=== PATIENT | male | born 1940 | race Caucasian/White ===

== ENCOUNTER → 2017-05-03 | Outpatient (CLI) | payer MEDICARE, BC ==
--- NOTE | 2017-05-03 10:09 | RADRPT ---
PROCEDURE: Bilateral knee x-ray CLINICAL INDICATION: PAIN TECHNIQUE: AP and sunrise views of bilateral knees as well as a lateral view of bilateral knees we re obtained. COMPARISON: None FINDINGS: There is normal osseous mineralization. There is no acute fracture. Soft tissue structures are unremarkable. There is significant narrowing of the medial compartment of the right knee with subchondral sclerosi s and bone on bone contact noted. Mild chondrocalcinosis of the lateral compartment of the right kn ee is noted. There is mild narrowing of the right patellofemoral compartment. There is no significant right knee effusion. There is significant narrowing of the medial compartment of the left knee with subchondral sclerosis and bone on bone contact noted. Mild chondrocalcinosis of the lateral compartment of the left knee is noted. There is moderate narrowing of the left patellofemoral compartment. There is no significant left knee effusion. RPTAT: AA IMPRESSION: Moderate to severe degenerative changes of bilateral knees involving primarily the medial compartmen ts, as above. Physician [facility] Date Time Electronically viewed and signed by Arvind Nicole Physician on 05/03/2017 10:08 /
== END | disposition home or self-care (01) ==
LOC: HKI 12:46
PROVIDERS: ATTEND Orthopaedic Surgery
DX: M17.0 Bilateral primary osteoarthritis of knee (principal); M25.562 Pain in left knee; M25.561 Pain in right knee; I10 Essential (primary) hypertension; E78.00 Pure hypercholesterolemia, unspecified; Z85.828 Personal history of other malignant neoplasm of skin; Z87.891 Personal history of nicotine dependence; Z88.0 Allergy status to penicillin
CPT/HCPCS: 73564; G0463

== ENCOUNTER → 2017-06-09 | Outpatient (CLI) | payer MEDICARE, BC ==
[~2017-06-09] MED LIST: AMLO-147 PO; LOSA50TA6 PO
--- NOTE | 2017-06-09 14:05 | RADRPT ---
PROCEDURE: Limited x-ray of both lower extremities. CLINICAL INDICATION: Bilateral leg pain. TECHNIQUE: Single frontal view of both lower extremities was obtained from the hips to the calves. COMPARISON: None. FINDINGS: These are not well seen due to overlying soft tissues. There are degenerative changes of both knees with bilateral medial joint compartment narrowing, subarticular sclerosis, and deformity. There is bilateral varus deformity. IMPRESSION: 1. The hips are not well seen. 2. Severe degenerative changes of both knees with varus deformity. RPTAT: QQ .Reynold Brantley MD, MD Date Time Electronically viewed and signed by .Reynold Brantley MD, MD on 06/09/2017 14:04 .R/
== END | disposition home or self-care (01) ==
LOC: HKI 10:51
PROVIDERS: ATTEND Orthopaedic Surgery
DX: Z01.818 Encounter for other preprocedural examination (principal)
CPT/HCPCS: 77073

== ENCOUNTER 2017-06-15 09:58 | Inpatient (IN) | payer MEDICARE, BC ==
[~2017-06-15] VITALS: Ht 177.8 cm; Wt 105.0 kg
[2017-06-15] VITALS (23 sets, daily range): BP systolic 135–162; BP diastolic 60–101; PULSE 76–98; RESP 13–20; Ht 177.8 cm; Wt 105.0 kg
[~2017-06-15 09:58] MED LIST changes: +CEFAZOLIN 1 GM INJ ONE; +EPHEDrine SULFATE 50 MG/5 ML SYG ONE
[2017-06-15] MEDS ORDERED: ATOR10TA65 PO (10:47)
[2017-06-15] MEDS ORDERED: VIT1TABL32 PO (10:48)
[2017-06-15] MEDS ORDERED: MULT-860 PO (10:48)
[2017-06-15] MEDS ORDERED: CELECOXIB 400 MG PO X1 DOSE PO ONE (11:00)
[2017-06-15] MEDS ORDERED: BUPIVACAINE LIPOSOME/PF 266 MG/20 ML VIAL INFIL ONE (11:00)
[2017-06-15] MEDS ORDERED: PAIN COCKTAIL - VANCOMYCIN IRR ONE ×7 (11:00)
[2017-06-15] MEDS ORDERED: TRANEXAMIC ACID 1,000 MG in SOD CHLORIDE 0.9% 90 ML IV ONE (11:00)
[2017-06-15] MEDS ORDERED: oxyCODONE (CR) 10 MG TAB [oxyCONTIN] X1 DOSE PO ONE (11:00)
[2017-06-15] MEDS ORDERED: TRANEXAMIC ACID 1,000 MG in SOD CHLORIDE 0.9% 100 ML IVPB ONE (11:00)
[2017-06-15] MEDS ORDERED: PREGABALIN 300 MG PO X1 PO ONE (11:00)
[2017-06-15] MEDS ORDERED: VANCOMYCIN 1 GM/NS 250 ML X1 BEFORE INCISION IVPB ONE (11:00)
[2017-06-15] MEDS ORDERED: traMADOL 50 MG TAB X 1 DOSE PO ONE (11:00)
[2017-06-15] MEDS: LACTATED RINGER'S 1,000 ML IV SCH ×3 (11:44→21:00)
[2017-06-15] MEDS: traMADol 50 MG TAB PO SCH ×2 (12:00→19:57)
[2017-06-15] MEDS ORDERED: POLYMYXIN B 500000 UNIT INJ ONE (12:39)
[2017-06-15] MEDS ORDERED: SODIUM CL BACTERIOSTATIC 30 ML INJ ONE (12:40)
--- NOTE | 2017-06-15 12:40 | HPN ---
Date/Time of Note Date/Time of Note DATE: 06/15/17 TIME: 12:39 Interval H&P Admission Note Pt. seen H&P reviewed: No system changes No changes from H&P on 06/02/17 by ANA Paulino MD Jun 15, 2017 12:39
[2017-06-15] MEDS ORDERED: PROPOFOL 100 ML ONE (13:16)
[2017-06-15] MEDS ORDERED: FENTAnyl 50 MCG/ML VIAL ONE (13:16)
[2017-06-15] MEDS ORDERED: LIDOCAINE 2% (SDV) 5 ML INJ ONE (13:16)
[2017-06-15] MEDS ORDERED: MIDAZOLAM 1 MG/ML 2 ML INJ ONE (13:16)
[2017-06-15] MEDS: VANCOMYCIN 1 GM INJ ONE ×2 (14:12→14:14)
[2017-06-15] MEDS ORDERED: BACITRACIN 50000 UNITS INJ IRR ONE (14:12)
[2017-06-15] MEDS ORDERED: EXPAREL NOTE (BUPIVICAINE LIPOSOMAL) XX SCH (14:30)
[2017-06-15] MEDS ORDERED: MEPERIDINE 25 MG INJ IV PRN (15:00)
[2017-06-15] MEDS ORDERED: FENTAnyl 50 MCG/ML VIAL IV PRN (15:00)
[2017-06-15] MEDS ORDERED: HYDROmorphONE (0.2 MG/ML) 10ML SYG IV PRN (15:00)
[2017-06-15] MEDS ORDERED: PROCHLORPERAZINE 10 MG INJ IV PRN (15:00)
[2017-06-15] MEDS ORDERED: DIPHENHYDRAMINE 50 MG INJ IV PRN (15:00)
[2017-06-15] MEDS ORDERED: ONDANSETRON 4 MG INJ IV PRN ×2 (15:00→16:00)
[2017-06-15] MEDS ORDERED: ASPIRIN (EC) 325 MG TAB PO ONE (16:00)
[2017-06-15] MEDS ORDERED: DIPHENHYDRAMINE 25 MG CAP PO PRN (16:00)
[2017-06-15] MEDS ORDERED: NA PHOSPHATE/BIPHOS 133 ML ENEMA PR PRN (16:00)
[2017-06-15] MEDS ORDERED: NACL 0.9% 3 ML SYG IV SCH (16:00)
[2017-06-15] MEDS ORDERED: CEFAZOLIN 2 GM/50 ML (PMX) 50 ML IVPB SCH (16:00)
[2017-06-15] MEDS ORDERED: BISACODYL 10 MG SUPP PR PRN (16:00)
[2017-06-15] MEDS ORDERED: HYDROmorphONE 1 MG/ML SYG IV PRN (16:00)
[2017-06-15] MEDS ORDERED: MAGNESIUM HYDROXIDE 30ML CUP PO PRN (16:00)
--- NOTE | 2017-06-15 16:02 | OPR ---
Date/Time of Note Date/Time of Note DATE: 06/15/17 TIME: 15:56 Operative Report Procedure Description DATE: 06/15/2017 PREOPERATIVE DIAGNOSIS: Left knee osteoarthritis POSTOPERATIVE DIAGNOSIS: Left knee osteoarthritis OPERATION PERFORMED: Left total knee arthroplasty. SURGEON: Ana Culp MD POWDERED SUGAR PULVERIZER OPERATOR: Blue Giron PA-C COMPONENTS USED: DePuy attune size 7 femur, size 7 tibial baseplate, 5 mm polyethylene insert, 38 patella ANESTHESIA: Spinal plus general endotracheal intubation, plus femoral nerve catheter. ANESTHESIOLOGIST: Tamiko Navarro M.D. TOURNIQUET TIME: 74 minutes. ESTIMATED BLOOD LOSS: 50 cc INTRAVENOUS FLUIDS: 2500 cc crystalloid SPECIMENS: Bone and soft tissue. DRAINS: Hemovac x1. COMPLICATIONS: None. DISPOSITION: The patient tolerated the procedure well and was taken to the recovery room in stable condition. INDICATIONS: The patient is a 76-year-old gentleman who has had worsening pain in his left knee with radiographic evidence of severe osteoarthritis. He has failed nonsurgical means of treatment to address his pain including activity modifications, pain medications, intra-articular injections, and ambulatory assist devices. Despite these measures he has had worsening pain and I feel he would benefit from a total knee arthroplasty . The risks, benefits, and alternatives of the procedure were explained in detail to the patient. I explained the risks of the surgery to include but not be limited to, bleeding and possible need for blood transfusion; infection; pain; stiffness; neurovascular injury with possible numbness, weakness, and/or paralysis anywhere from the knee down to the toes; fracture; instability; dislocation; wear and/or loosening of the prosthesis and possible need for future revision; blood clots; pulmonary embolism; and anesthetic complications such as heart attack, stroke, GI bleed, pneumonia, and/or . Ample time was allowed for the patient to ask questions, all of which were addressed and answered. The patient understood the risks involved and wished to proceed. Informed consent was signed prior to the procedure. PROCEDURE: The patient's left knee was initialed with a marking pen in the preoperative area to identify the correct operative site. The patient was brought to the operating room and transferred from the [facility] to the operating table where a spinal anesthetic was administered. The patient was then anesthetized and intubated. A Mishra catheter was placed. A timeout was performed to confirm that the left leg was the correct operative site. The patient was given 1 g of vancomycin and 2 g of Ancef within one hour prior to the procedure. A tourniquet was placed on the operative proximal thigh. The operative knee and lower extremity were prepped and draped in the usual sterile fashion. The operative lower extremity was elevated and exsanguinated with an Esmarch tourniquet. The proximal thigh tourniquet was inflated to 300 mmHg. The knee was flexed. A midline incision was made and carried down through the subcutaneous tissue and fat with sharp dissection. Limited medial and lateral flaps were raised. A median parapatellar approach was performed. Synovial fluid was normal in color and consistency. The patella was everted and the knee flexed. There were severe tricompartmental osteoarthritic changes noted. A medial release was performed at the joint line to the midcoronal plane. The ACL and PCL and remnants of the menisci were excised. The stepped drill was used to open up the femoral canal which was irrigated and sucked dry. The intramedullary guide jabari was passed up the femur, and the distal cutting block was pinned into place for a 5 degree valgus cut, taking 10 mm of bone off distally. The oscillating saw was used to make the cut. The tibia was subluxed anteriorly. The tibial cutoff jig was placed over the center of the talus distally and over the junction of the medial and middle third of the tibial tubercle proximally. The guide was pinned into place and the oscillating saw was used to make the cut. The tibia was sized. The extension gap was checked and accommodated a 5 mm spacer block with the knee in full extension. There was no varus or valgus instability. At this point, the femur was sized with the posterior referencing guide. Two holes were drilled in 3 degrees of external rotation. The two holes were in line with the transepicondylar axis, perpendicular to Olivia's line, and in line with the tibial cutoff jig brought up with the knee flexed 90 degrees and tensed with 2 lamina spreaders, suggesting the femoral rotation was correct. The four-in-one cutting block was pinned into place. The anterior and posterior cuts and chamfer cuts were made with the oscillating saw. The flexion gap was checked and accommodated the 5 mm spacer block at 90 degrees. There was no varus or valgus instability, suggesting the flexion and extension gaps were now equal. The central box was cut out on the femur. The tibia was drilled and punched in proper rotation. Trial components were placed into position with a trial insert. The patella was cut down to 15 mm and sized. Three holes were drilled and the trial button placed in position. With all the trials now in place, the knee was taken through range of motion and came to full extension as evidenced by the fact that with the foot on my abdomen and axial loading, there was no tendency for the knee to flex. The knee was able to be flexed to 125 degrees with good patellar tracking with no lateral tilt or subluxation. At this point, I was satisfied with the overall range of motion, stability, and patellar tracking. The trials were removed. The real components were opened. Two bags of cement were mixed, one with and one without premixed antibiotic. The knee was irrigated with antibiotic saline and sucked dry. Once the cement was in a doughy stage, the real components were cemented into place. The knee was held in full extension, and the patellar component was held with a patellar clamp. All excess cement was removed with curettes. As the cement was hardening, the synovial/capsular layer was infiltrated with a mixture of 150 mg of 0.5% Bupivacaine, 8 mg of Duramorph, 300 mcg of epinephrine, 30 mg of Toradol, 100 mcg of clonidine, 750 mg of cefuroxime and 86 mL of normal saline, followed by an injection of 266 mg of liposomal Bupivacaine. A Hemovac drain was placed in the deep portion of the wound and brought out the anterolateral thigh. Once the cement was completely hardened, the trial liner was removed, and the real insert was opened. The tourniquet was let down, and there was good hemostasis. The knee was then irrigated with a mixture of betadine/saline and then antibiotic saline with pulsatile lavage. The real insert was impacted into the tibia and reduced onto to the femur. The arthrotomy was closed with a few interrupted #1 Ethibond in a figure-of- eight fashion, and then closed in a watertight fashion with a running #2 Stratafix suture. Knee flexion was checked against gravity and came to 125 degrees. The subcutaneous layer was irrigated and closed with 2-0 Statafix, and then 3-0 Vicryl and then varsha on the skin. The wound was covered with an occlusive dressing, and secured with cast padding and a bias dressing. The drain was secured with 3-0 nylon. The sponge and needle counts were correct at the end of the case. The patient was then awakened, extubated, and taken to the recovery room in stable condition. ANA CULP MD Jun 15, 2017 16:01
--- NOTE | 2017-06-15 16:06 | PN ---
Date/Time of Note Date/Time of Note DATE: 06/15/17 TIME: 16:04 Assessment/Plan Lines/Catheters IV Catheter Type (from Nrsg): Peripheral IV Assessment/Plan Assessment/Plan Stable in PACU, s/p left TKA -continue Vancomycin -pain meds as needed -ASA/SCDs -OOB with PT -check AM labs -monitor drain -d/c [place] in AM XR of the left knee is pending at this time Subjective 24 Hr Interval Summary Stable in PACU. Denies pain. Moving all extremities. Exam/Review of Systems Vital Signs Vitals Vital Signs Date Time Temp Pulse Resp B/P Pulse Ox O2 Delivery O2 Flow Rate FiO2 06/15/17 15:57 90 20 144/75 96 Room Air 06/15/17 15:52 98.0 Exam Free Text/Dictation Hemovac: minimal Dressing dry Incision clean, dry, and intact without redness or drainage Thigh soft 5/5 Quadriceps, Tibialis Anterior, EHL, Gastroc, Soleus, Peroneals Normal sensation Palpable DT/PT, CR <2 sec No distal edema DARRIN STERLING PA-C Jun 15, 2017 16:06
[2017-06-15 17:13] LABS: CALCIUM 8.8 mg/dl (8.4-10.2); CREATININE 1.19 mg/dl (0.61-1.24); POTASSIUM 4.1 mmol/L (3.5-5.1)
[2017-06-15 17:22] LABS: HEMATOCRIT 32.9 % (42.0-52.0); HEMOGLOBIN 11.1 g/dl (14.0-18.0)
--- NOTE | 2017-06-15 18:04 | RADRPT ---
PROCEDURE: Left knee x-ray CLINICAL INDICATION: PACU Post Op TECHNIQUE: AP, lateral and oblique views of the knee were obtained. COMPARISON: Left knee 05/03/2017 09:03 a.m. FINDINGS: There are postsurgical changes with clips noted ventral to the patella and tibia. There is a draina ge catheter are in the joint space between the femur and femoral component of the left knee arthropl asty. The tibial component, femoral and patellar components appear anatomically aligned. IMPRESSION: 1. Status post total left knee arthroplasty with postsurgical changes. RPTAT:AAJJ Physician Daniela Date Time Electronically viewed and signed by Silvano Zhang Physician on 06/15/2017 18:03 NOA/
[2017-06-15] MEDS: TRANEXAMIC ACID IVPB ONE ×3 (19:00→22:32)
[2017-06-15] MEDS: SOD CHLORIDE 0.9% IVPB ONE ×3 (19:00→22:32)
[2017-06-15] MEDS: PANTOPRAZOLE (EC) 40 MG TAB PO SCH (20:38)
[2017-06-15] MEDS: PREGABALIN 50 MG CAP PO SCH (20:38)
[2017-06-15] MEDS: ATORVASTATIN 10 MG TAB PO SCH (20:38)
[2017-06-15] MEDS: DOCUSATE SODIUM 100 MG CAP PO SCH (20:39)
[2017-06-16 00:14] VITALS: BP 131/70; RESP 19
[2017-06-16] MEDS: LACTATED RINGER'S 1,000 ML IV SCH ×3 (03:54→07:51)
[2017-06-16] MEDS: traMADol 50 MG TAB PO SCH ×4 (03:54→17:50)
[2017-06-16 04:58] LABS: HEMATOCRIT 32.9 % (42.0-52.0); HEMOGLOBIN 10.6 g/dl (14.0-18.0)
[2017-06-16 05:15] LABS: CALCIUM 8.9 mg/dl (8.4-10.2); CREATININE 1.15 mg/dl (0.61-1.24)
[2017-06-16] MEDS: HYDROCODONE/APAP (7.5/325) TAB PO PRN ×4 (06:38→22:12)
[2017-06-16] MEDS: PANTOPRAZOLE (EC) 40 MG TAB PO SCH ×2 (06:38→17:49)
[2017-06-16 07:31] VITALS: BP 143/72; RESP 20
--- NOTE | 2017-06-16 08:29 | PN ---
Date/Time of Note Date/Time of Note DATE: 06/16/17 TIME: 08:23 Assessment/Plan Lines/Catheters IV Catheter Type (from Nrsg): Peripheral IV Mishra in Place (from Nrsg): Yes Assessment/Plan Assessment/Plan Stable POD #1, s/p left TKA -d/c abx -pain meds as needed -ASA/SCDs -OOB with PT -check AM labs -drain removed -d/c planning. Will plan to go home upon discharge Subjective 24 Hr Interval Summary No acute overnight events. Denies significant pain. Did not start PT yet. VSS, afebrile. Will plan to go home upon discharge. Exam/Review of Systems Vital Signs Vitals Vital Signs Date Time Temp Pulse Resp B/P Pulse Ox O2 Delivery O2 Flow Rate FiO2 06/16/17 07:31 98.5 62 20 143/72 97 06/15/17 18:45 Nasal Cannula Intake and Output 06/15/17 06/15/17 06/16/17 15:00 23:00 07:00 Intake Total 2600 ml 100 ml Output Total 80 ml 1020 ml Balance 2520 ml -920 ml Exam Free Text/Dictation Hemovac: 280cc Dressing dry Incision clean, dry, and intact without redness or drainage Thigh soft 5/5 Quadriceps, Tibialis Anterior, EHL, Gastroc, Soleus, Peroneals Normal sensation Palpable DT/PT, CR <2 sec No distal edema Results Result Diagram: 06/16/17 0446 06/16/17 0446 DARRIN STERLING PA-C Jun 16, 2017 08:29
[2017-06-16] MEDS: DOCUSATE SODIUM 100 MG CAP PO SCH ×2 (08:41→20:29)
[2017-06-16] MEDS: ASPIRIN (EC) 325 MG TAB PO SCH ×2 (08:41→20:29)
[2017-06-16] MEDS: LOSARTAN 50 MG TAB PO SCH (08:42)
[2017-06-16] MEDS: BETA CAROTENE/VIT C/E/MIN TAB PO SCH (08:42)
[2017-06-16] MEDS: AMLODIPINE 10 MG TAB PO SCH (08:42)
[2017-06-16] MEDS: PREGABALIN 50 MG CAP PO SCH ×2 (08:42→20:29)
[2017-06-16 09:57] LABS: ADD UMIC YES; UR BILIRUBIN (Dip) NEGATIVE (NEGATIVE); UR BLOOD (Dip) NEGATIVE (NEGATIVE); UR CLARITY CLEAR (CLEAR); UR COLOR LT. YELLOW (YELLOW); UR GLUCOSE (Dip) NEGATIVE (NEGATIVE); UR KETONES (Dip) NEGATIVE (NEGATIVE); UR LEUKOCYTE ESTERASE (Dip) TRACE (NEGATIVE); UR NITRITE (Dip) NEGATIVE (NEGATIVE); UR TOTAL PROTEIN (Dip) NEGATIVE (NEGATIVE); UR UROBILINOGEN (Dip) 0.2 E.U./dL (0.1-1.0)
--- NOTE | 2017-06-16 10:50 | CONS ---
Date/Time of Note Date/Time of Note DATE: 06/16/17 TIME: 10:46 Assessment/Plan Assessment/Plan Chief Complaint/Hosp Course 1.He is now 1 day postop a left total knee arthroplasty. He is awake and alert. His pain is under control. His laboratory tests and vital signs are acceptable. He was up with physical therapy earlier today. 2. Continue current medication and physical therapy. Problems: Consultation Date/Type/Reason Admit Date/Time Jun 15, 2017 at 09:58 Initial Consult Date 24 HR Interval Summary Free Text/Dictation This patient is 1 day postop a left total knee arthroplasty. He is awake and responsive. He is sitting in a chair. His pain is under control. He was up walking with physical therapy today. Constitutional: improved, no complaints Exam/Review of Systems Vital Signs Vitals Vital Signs Date Time Temp Pulse Resp B/P Pulse Ox O2 Delivery O2 Flow Rate FiO2 06/16/17 07:31 98.5 62 20 143/72 97 06/15/17 18:45 Nasal Cannula Intake and Output 06/15/17 06/15/17 06/16/17 15:00 23:00 07:00 Intake Total 2600 ml 100 ml Output Total 80 ml 1020 ml Balance 2520 ml -920 ml Exam Constitutional: alert, oriented, well developed Psych: nl mood/affect, no complaints Respiratory: clear to auscultation, normal air movement Cardiovascular: regular rate and rhythm Gastrointestinal: nl liver, spleen, soft Musculoskeletal: nl extremities to inspection Results Result Diagram: 06/16/17 0446 06/16/17 0446 Results 24 hrs Laboratory Tests Test 06/15/17 16:40 06/16/17 04:46 06/16/17 05:00 Hemoglobin 11.1 L 10.6 L Hematocrit 32.9 L 32.9 L Sodium Level 144 144 Potassium Level 4.1 5.0 Chloride Level 104 103 Carbon Dioxide Level 27 29 Anion Gap 17 H 17 H Blood Urea Nitrogen 22 H 18 Creatinine 1.19 1.15 Glucose Level 92 89 Calcium Level 8.8 8.9 Urine Color LT. YELLOW Urine Clarity CLEAR Urine pH 5.5 Urine Specific [place] 1.010 Urine Ketones NEGATIVE Urine Nitrite NEGATIVE Urine Bilirubin NEGATIVE Urine Urobilinogen 0.2 E.U./dL Urine Leukocyte Esterase TRACE H Urine Microscopic WBC 0-2 Urine Hemoglobin NEGATIVE Urine Glucose NEGATIVE Urine Total Protein NEGATIVE Medications Medications Current Medications Lactated Ringer's (Lr) 1,000 ml @ 100 mls/hr Q10H IV Last administered on 06/15 11:44; Admin Dose 100 MLS/HR; Start 06/15/17 at 11:00 Miscellaneous Information 1 ea NOTE XX ; Start 06/15/17 at 14:30; Stop 06/19/17 at 14:29 Amlodipine Besylate (Norvasc) 10 mg DAILY PO Last administered on 06/16/17 08: 42; Admin Dose 10 MG; Start 06/16/17 at 09:00 Atorvastatin Calcium (Lipitor) 10 mg QHS PO Last administered on 06/15/17 20: 38; Admin Dose 10 MG; Start 06/15/17 at 21:00 Losartan Potassium (Cozaar) 50 mg DAILY PO Last administered on 06/16/17 08:42 ; Admin Dose 50 MG; Start 06/16/17 at 09:00 Beta Carotene 1 tab 1 tab DAILY PO Last administered on 06/16/17 08:42; Admin Dose 1 TAB; Start 06/16/17 at 09:00 Lactated Ringer's (Lr) 1,000 ml @ 125 mls/hr Q8H IV Last administered on 03:54; Admin Dose 125 MLS/HR; Start 06/15/17 at 15:51 Tramadol HCl (Ultram) 50 mg Q6 PO Last administered on 06/16/17 03:54; Admin Dose 50 MG; Start 06/15/17 at 12:00; Stop 06/18/17 at 11:59 Hydromorphone HCl (Dilaudid) 1 mg Q3H PRN IV PAIN LEVEL 8-10; Start 06/15/17 at 16:00 Ondansetron HCl (Zofran Inj) 4 mg Q6H PRN IV NAUSEA AND/OR VOMITING; Start at 16:00 Bisacodyl (Dulcolax Supp) 10 mg Q12H PRN [place] CONSTIPATION; Start 06/15/17 at 16: 00 Magnesium Hydroxide (Milk Of Mag) 30 ml BID PRN PO CONSTIPATION; Start at 16:00 Sodium Biphosphate/ Sodium Phosphate (Fleet Enema) 133 ml DAILY PRN [place] CONSTIPATION; Start 06/15/17 at 16:00 Docusate Sodium (Colace) 100 mg BID PO Last administered on 06/16/17 08:41; Admin Dose 100 MG; Start 06/15/17 at 21:00 Diphenhydramine HCl (Benadryl) 25 mg Q6H PRN PO PRURITUS; Start 06/15/17 at 16: 00 Acetaminophen/ Hydrocodone Bitart ([place] (7.5-325)) 1 tab Q4H PRN PO PAIN LEVEL 1-3 Last administered on 06/16/17 06:38; Admin Dose 1 TAB; Start at 16:00 Acetaminophen/ Hydrocodone Bitart ([place] (7.5-325)) 2 tab Q4H PRN PO PAIN LEVEL 4-7; Start 06/15/17 at 16:00 Aspirin (Ecotrin) 325 mg BID PO Last administered on 06/16/17 08:41; Admin Dose 325 MG; Start 06/16/17 at 09:00 Pantoprazole (Protonix Tab) 40 mg BID@06,18 PO Last administered on 06/16/17 06:38; Admin Dose 40 MG; Start 06/15/17 at 18:00 Pregabalin 50 mg 50 mg BID PO Last administered on 06/16/17 08:42; Admin Dose 50 MG; Start 06/15/17 at 21:00 Vancomycin HCl (Vancocin) 250 ml @ 125 mls/hr ONCE IVPB ; Start 06/16/17 at 12: 00; Stop 06/16/17 at 13:59 KRISSY ARTEAGA MD Jun 16, 2017 10:50
[2017-06-16] MEDS ORDERED: VANCOMYCIN 1 GM in NS 250 ML IVPB SCH (12:00)
--- NOTE | 2017-06-16 16:18 | PDOCDIS ---
Discharge Instructions DIAGNOSIS Discharge Diagnosis s/p left TKA CONDITION Patient Condition: Good HOME CARE INSTRUCTIONS: Diet Instructions: Regular ACTIVITY: Activity Restrictions: Slowly Increase Activity Rest between Activity Avoid heavy lifting Do not operate Machinery Do not operate Power Tool Avoid Heavy Housework Keep Limb Elevated Weight Bearing Bathing Restrictions: Shower FOLLOW UP/APPOINTMENTS Follow-up Plan follow up in the office on 07/27/17 OTHER ORDERS: Other Orders: S/P TKA Physical Therapy: Three times per week at home x 2 weeks Daily in Rehab/SNF WB STATUS: WBAT 1. Strengthening exercises for both upper and un-operated lower extremities. 2. Gait training with front wheeled walker 3. Active range of motion exercises to operative knee. 4. When not working on knee range of motion exercises, distal towel roll under operative ankle/distal calf to promote full extension. 5. DO NOT PUT ANYTHING BEHIND OPERATIVE KNEE!!! 6. Quadriceps and hamstring strengthening. 7. May switch to cane in contra lateral hand 6 weeks after surgery. 8. Physical Therapy can open case if nursing is not available. 9. Use Ice Machine as instructed from date of surgery while at rest 3X/day. 10. Patient requires mobile SCDs to reduce risk of developing DVT following TKA. Patient will use the mobile SCDs for 30 days postoperatively. Bathing assistance by home health aide twice weekly if Medicare patient. Occupational Therapy: Evaluation for assistive devices and ADL training. Wound Care: Keep incision dry & covered with Tegaderm until first visit with Dr. Rodriguez Anticoagulation Orders: Enteric Coated Aspirin 325 mg po bid x 6 weeks from date of surgery Follow-up:Call for an appointment with Dr. Rodriguez in 1 week after discharged from hospital at DME Orders: [employer], 3-in-1 Commode, Polar ice machine, Mobile SCDs DARRIN STERLING PA-C Jun 16, 2017 16:18
[2017-06-16] MEDS ORDERED: PREG50CA PO (16:20)
[2017-06-16] MEDS ORDERED: PANT40TA4 PO (16:20)
[2017-06-16] MEDS ORDERED: TRAM50TA2 PO (16:20)
[2017-06-16] MEDS ORDERED: HYDR-3605 PO (16:20)
[2017-06-16] MEDS ORDERED: ASPI325T32 PO (16:20)
[2017-06-16 20:03] VITALS: BP 138/76; RESP 19
[2017-06-16] MEDS: ATORVASTATIN 10 MG TAB PO SCH (20:29)
[2017-06-17] MEDS: traMADol 50 MG TAB PO SCH ×4 (00:16→17:57)
[2017-06-17 05:51] LABS: HEMOGLOBIN 10.2 g/dl (14.0-18.0)
[2017-06-17] MEDS: PANTOPRAZOLE (EC) 40 MG TAB PO SCH ×2 (06:08→17:57)
[2017-06-17 06:35] LABS: CALCIUM 8.1 mg/dl (8.4-10.2); CREATININE 1.3 mg/dl (0.61-1.24); POTASSIUM 3.8 mmol/L (3.5-5.1)
[2017-06-17] MEDS: HYDROCODONE/APAP (7.5/325) TAB PO PRN ×2 (07:27→16:25)
[2017-06-17 07:53] VITALS: BP 133/68; RESP 17
[2017-06-17] MEDS: BETA CAROTENE/VIT C/E/MIN TAB PO SCH (08:22)
[2017-06-17] MEDS: AMLODIPINE 10 MG TAB PO SCH (08:22)
[2017-06-17] MEDS: ASPIRIN (EC) 325 MG TAB PO SCH ×2 (08:23→21:26)
[2017-06-17] MEDS: DOCUSATE SODIUM 100 MG CAP PO SCH ×2 (08:23→21:25)
[2017-06-17] MEDS: LOSARTAN 50 MG TAB PO SCH (08:23)
[2017-06-17] MEDS: PREGABALIN 50 MG CAP PO SCH ×2 (08:24→21:25)
--- NOTE | 2017-06-17 10:56 | PN ---
Date/Time of Note Date/Time of Note DATE: 06/17/17 TIME: 10:55 Assessment/Plan Lines/Catheters IV Catheter Type (from Nrsg): Peripheral IV Mishra in Place (from Nrsg): Yes Assessment/Plan Assessment/Plan Stable, POD #2, s/p left TKA -pain meds as needed -ASA/SCDs -OOB with PT -check AM labs -dressing changed -d/c planning. Tentatively plan to d/c home tomorrow Subjective 24 Hr Interval Summary No acute overnight events. Having more pain today. Progressing with PT. VSS, afebrile. Will plan to go home tomorrow Exam/Review of Systems Vital Signs Vitals Vital Signs Date Time Temp Pulse Resp B/P Pulse Ox O2 Delivery O2 Flow Rate FiO2 06/17/17 07:53 98.9 85 17 133/68 100 06/15/17 18:45 Nasal Cannula Intake and Output 06/16/17 06/16/17 06/17/17 15:00 23:00 07:00 Intake Total 1125 ml 1830 ml 850 ml Output Total 280 ml 2800 ml 1200 ml Balance 845 ml -970 ml -350 ml Exam Free Text/Dictation Dressing dry Incision clean, dry, and intact without redness or drainage Thigh soft 5/5 Quadriceps, Tibialis Anterior, EHL, Gastroc, Soleus, Peroneals Normal sensation Palpable DT/PT, CR <2 sec No distal edema Results Result Diagram: 06/17/176 06/17/176 DARRIN STERLING PA-C Jun 17, 2017 10:56
--- NOTE | 2017-06-17 15:20 | CONS ---
Date/Time of Note Date/Time of Note DATE: 06/17/17 TIME: 15:16 Consult Date/Type/Reason Admit Date/Time Jun 15, 2017 at 09:58 Initial Consult Date Medicine Type of Consultation: Medicine Reason for Consultation HTN Subjective Patient complains of pain in knee. Mild constipation s/p bowel regimen, feels as though he will have a BM soon. No fevers, chills, nausea, vomiting, diarrhea , chest pain, sob, cough, abd pain. Objective Vital Signs Date Time Temp Pulse Resp B/P Pulse Ox O2 Delivery O2 Flow Rate FiO2 06/17/17 07:53 98.9 85 17 133/68 100 06/15/17 18:45 Nasal Cannula Intake and Output 06/16/17 06/16/17 06/17/17 15:00 23:00 07:00 Intake Total 1125 ml 1830 ml 850 ml Output Total 280 ml 2800 ml 1200 ml Balance 845 ml -970 ml -350 ml Exam Gen-NAD HEENT-op clear, mmm CV-rrr, nml s1/s2, no m/r/g Abd-soft, nt/nd, +BS Ext-no c/c/e Results/Medications Result Diagram: 06/17/17 0446 06/17/17 0446 Results 24 hrs Laboratory Tests Test 06/17/17 04:46 Hemoglobin 10.2 L Hematocrit 32.0 L Sodium Level 141 Potassium Level 3.8 Chloride Level 102 Carbon Dioxide Level 28 Anion Gap 15 Blood Urea Nitrogen 17 Creatinine 1.30 H Glucose Level 90 Calcium Level 8.1 L Medications Current Medications Miscellaneous Information 1 ea NOTE XX ; Start 06/15/17 at 14:30; Stop 06/19/17 at 14:29 Amlodipine Besylate (Norvasc) 10 mg DAILY PO Last administered on 06/17/17 08: 22; Admin Dose 10 MG; Start 06/16/17 at 09:00 Atorvastatin Calcium (Lipitor) 10 mg QHS PO Last administered on 06/16/17 20: 29; Admin Dose 10 MG; Start 06/15/17 at 21:00 Losartan Potassium (Cozaar) 50 mg DAILY PO Last administered on 06/17/17 08:23 ; Admin Dose 50 MG; Start 06/16/17 at 09:00 Beta Carotene (Ocuvite) 1 tab DAILY PO Last administered on 06/17/17 08:22; Admin Dose 1 TAB; Start 06/16/17 at 09:00 Tramadol HCl (Ultram) 50 mg Q6 PO Last administered on 06/17/17 12:08; Admin Dose 50 MG; Start 06/15/17 at 12:00; Stop 06/18/17 at 11:59 Hydromorphone HCl (Dilaudid) 1 mg Q3H PRN IV PAIN LEVEL 8-10; Start 06/15/17 at 16:00 Ondansetron HCl (Zofran Inj) 4 mg Q6H PRN IV NAUSEA AND/OR VOMITING; Start at 16:00 Bisacodyl (Dulcolax Supp) 10 mg Q12H PRN [place] CONSTIPATION; Start 06/15/17 at 16: 00 Magnesium Hydroxide (Milk Of Mag) 30 ml BID PRN PO CONSTIPATION; Start at 16:00 Sodium Biphosphate/ Sodium Phosphate (Fleet Enema) 133 ml DAILY PRN [place] CONSTIPATION; Start 06/15/17 at 16:00 Docusate Sodium (Colace) 100 mg BID PO Last administered on 06/17/17 08:23; Admin Dose 100 MG; Start 06/15/17 at 21:00 Diphenhydramine HCl (Benadryl) 25 mg Q6H PRN PO PRURITUS; Start 06/15/17 at 16: 00 Acetaminophen/ Hydrocodone Bitart ([place] (7.5-325)) 1 tab Q4H PRN PO PAIN LEVEL 1-3 Last administered on 06/17/17 07:27; Admin Dose 1 TAB; Start at 16:00 Acetaminophen/ Hydrocodone Bitart ([place] (7.5-325)) 2 tab Q4H PRN PO PAIN LEVEL 4-7 Last administered on 06/16/17 16:02; Admin Dose 2 TAB; Start at 16:00 Aspirin (Ecotrin) 325 mg BID PO Last administered on 06/17/17 08:23; Admin Dose 325 MG; Start 06/16/17 at 09:00 Pantoprazole (Protonix Tab) 40 mg BID@,18 PO Last administered on 06/17/17 06:08; Admin Dose 40 MG; Start 06/15/17 at 18:00 Pregabalin (Lyrica) 50 mg BID PO Last administered on 06/17/17t 08:24; Admin Dose 50 MG; Start 06/15/17 at 21:00 Assessment/Plan Chief Complaint/Hosp Course 76 y.o male pmh HTN s/p L TKA 06/15 Problems: Additional Assessment/Plan #s/p L TKA -judicious pain management -bowel regimen -ASA 325 BID for DVT ppx -PT #HTN-controlled -losartan -norvasc #HLD-atorva 10 LINA CASH MD Jun 17, 2017 15:19
[2017-06-17 20:44] VITALS: BP 119/62; RESP 18
[2017-06-17] MEDS: ATORVASTATIN 10 MG TAB PO SCH (21:26)
[2017-06-18] MEDS: traMADol 50 MG TAB PO SCH ×2 (04:59)
[2017-06-18] MEDS: PANTOPRAZOLE (EC) 40 MG TAB PO SCH (06:22)
[2017-06-18 06:55] LABS: HEMATOCRIT 35.3 % (42.0-52.0); HEMOGLOBIN 11.5 g/dl (14.0-18.0)
[2017-06-18 07:21] LABS: CALCIUM 9.1 mg/dl (8.4-10.2); CREATININE 1.22 mg/dl (0.61-1.24); POTASSIUM 3.9 mmol/L (3.5-5.1)
[2017-06-18 07:40] VITALS: BP 129/67; RESP 18
[2017-06-18] MEDS: HYDROCODONE/APAP (7.5/325) TAB PO PRN ×2 (08:44→11:45)
[2017-06-18] MEDS: PREGABALIN 50 MG CAP PO SCH (08:45)
[2017-06-18] MEDS: LOSARTAN 50 MG TAB PO SCH (08:45)
[2017-06-18] MEDS: AMLODIPINE 10 MG TAB PO SCH (08:45)
[2017-06-18] MEDS: ASPIRIN (EC) 325 MG TAB PO SCH (08:45)
[2017-06-18] MEDS: BETA CAROTENE/VIT C/E/MIN TAB PO SCH (08:45)
[2017-06-18] MEDS: DOCUSATE SODIUM 100 MG CAP PO SCH (08:45)
--- NOTE | 2017-06-18 10:21 | PN ---
Date/Time of Note Date/Time of Note DATE: 06/18/17 TIME: 10:20 Assessment/Plan Lines/Catheters IV Catheter Type (from Nrsg): Peripheral IV Mishra in Place (from Nrsg): No Assessment/Plan Assessment/Plan Stable POD #3, s/p left TKA -pain meds as needed -ASA/SCDs -OOB with PT -dressing changed -d/c home today -follow up in the office in 1 week Subjective 24 Hr Interval Summary No acute overnight events. Having mild pain but controlled with pain medication. Progressing with PT. VSS, afebrile. Stable for discharge home today. Exam/Review of Systems Vital Signs Vitals Vital Signs Date Time Temp Pulse Resp B/P Pulse Ox O2 Delivery O2 Flow Rate FiO2 06/18/17 07:40 98.8 96 18 129/67 94 06/15/17 18:45 Nasal Cannula Intake and Output 06/17/17 06/17/17 06/18/17 15:00 23:00 07:00 Intake Total 850 ml 1400 ml Output Total 1600 ml 1800 ml Balance -750 ml -400 ml Exam Free Text/Dictation Dressing dry Incision clean, dry, and intact without redness or drainage Thigh soft 5/5 Quadriceps, Tibialis Anterior, EHL, Gastroc, Soleus, Peroneals Normal sensation Palpable DT/PT, CR <2 sec No distal edema Results Result Diagram: 06/18/17 0541 06/18/17 0541 DARRIN STERLING PA-C Jun 18, 2017 10:21
--- NOTE | 2017-06-18 10:25 | DS ---
Date/Time of Note Date/Time of Note DATE: 06/18/17 TIME: 10:22 Discharge Summary Admission/Discharge Info Admit Date/Time Jun 15, 2017 at 09:58 Discharge Date/Time 06/18/2017 Discharge Diagnosis s/p left TKA Patient Condition: Good Procedures Left total knee arthroplasty Hospital Course This is a 76-year-old male, who was seen in the clinic initially complaining of left knee pain. X-rays demonstrated advanced osteoarthritis of the left knee, and it was thought he would benefit from a left total knee arthroplasty. On the patient was admitted and taken to the operating room, where he underwent a left total knee arthroplasty. There were no intraoperative complications. Patient tolerated the procedure well. He was taken to recovery room in stable condition. Pain was well-controlled oral pain medication. He was started on aspirin and SCDs for DVT prophylaxis. He remained hemodynamically stable and neurovascularly intact throughout his hospital stay. He began physical therapy on postoperative day 0 and continued to make good progress. Ultimately he was deemed stable for discharge on postoperative day 3. Prior to discharge, the incision was inspected and noted to be clean dry and intact. Dressing changes were done prior to patient going home. DISCHARGE INSTRUCTIONS: The patient will be discharged home in stable condition. He is to resume a normal diet. He is weightbearing as tolerated on left lower extremity. He will begin physical therapy with home health. He is to resume all of his normal home medication and take the medication noted above. The patient is to call the office or go to emergency room for any concerns including increased redness, swelling, drainage, fever, or any concerns regarding the operation or site of incision. Home Meds Reported Medications Vit A,C & E/Lutein/Minerals (Ocuvite) 1 Each Tablet, 1 TAB PO DAILY, TAB 06/15/17 Mu-Vits-Min Th/Lycopene/Lutein (CENTRUM SILVER TABLET) 1 Each Tablet, 1 EACH PO DAILY, TAB 06/15/17 Atorvastatin Calcium (Atorvastatin Calcium) 10 Mg Tablet, 10 MG PO QHS, #30 TAB 06/15/17 Losartan Potassium* (Losartan Potassium*) 50 Mg Tablet, 50 MG PO DAILY, TAB 06/09/17 Amlodipine Besylate* (Amlodipine Besylate*) 10 Mg Tablet, 10 MG PO DAILY, #30 TAB 06/09/17 Follow-up Plan Follow-up in the office on 06/26/2017 Primary Care Provider Not On Staff Doctor Pending Labs Laboratory Tests Test 06/18/17 05:41 Hemoglobin 11.5g/dl (14.0-18.0) Hematocrit 35.3% (42.0-52.0) Sodium Level 143mmol/L (135-144) Potassium Level 3.9mmol/L (3.5-5.1) Chloride Level 98mmol/L (97-110) Carbon Dioxide Level 31mmol/L (21-31) Anion Gap 18 (8-16) Blood Urea Nitrogen 14mg/dl (7-20) Creatinine 1.22mg/dl (0.61-1.24) Glucose Level 96mg/dl (70-220) Calcium Level 9.1mg/dl (8.4-10.2) DARRIN STERLING PA-C Jun 18, 2017 10:25
[2017-06-18] MEDS ORDERED: POLYETHYLENE GLYCOL 17 GM PACKET PO ONE (11:30)
== END 2017-06-18 12:20 | disposition home or self-care (01) | DRG 470 ==
LOC: REC 09:58 → MS1 18:15
PROVIDERS: ADMIT Orthopaedic Surgery; ATTEND Orthopaedic Surgery
PROC: 0SRD0J9 Replacement of Left Knee Joint with Synthetic Substitute, Cemented, Open Approach (ICD-10-PCS; principal; 2017-06-15 13:00)
DX: M17.12 Unilateral primary osteoarthritis, left knee (principal); I10 Essential (primary) hypertension; E78.5 Hyperlipidemia, unspecified
CPT/HCPCS: 73560; 80048; 81001; 85014; 85018; 86850; 86900; 86901; 86920; 87081; 87086; 88304; 88311; 97116; 97163; 97166; 97530; C1776; C9290; J0171; J0690; J0735; J1170; J1200; J1885; J2250; J2274; J2405; J3010; J3370; J7120

== ENCOUNTER → 2017-06-26 | Outpatient (CLI) | payer MEDICARE, BC ==
[~2017-06-26] VITALS: Ht 177.8 cm; Wt 99.8 kg
[~2017-06-26] MED LIST changes: +ASPI325T32 PO; +ATOR10TA65 PO; -CEFAZOLIN 1 GM INJ ONE; -EPHEDrine SULFATE 50 MG/5 ML SYG ONE; +HYDR-3605 PO; +MULT-860 PO; +PANT40TA4 PO; +PREG50CA PO; +TRAM50TA2 PO; +VIT1TABL32 PO
--- NOTE | 2017-06-26 11:03 | PN ---
Date/Time of Note Date/Time of Note DATE: 06/26/17 TIME: 10:59 Assessment/Plan VTE Prophylaxis VTE Prophylaxis Intervention: ambulation, SCD's, other Assessment/Plan Assessment/Plan ASSESSMENT: 10 days status post left total knee arthroplasty PLAN: The varsha were removed today and Steri-Strips were applied. He is to continue doing physical therapy with home health and transition to an outpatient physical therapy program. Additionally is to continue aspirin 325 mg twice daily for DVT prophylaxis. We will see him back in 4 weeks for repeat evaluation. The patient is to call the office in the meantime if he has any concerns. Subjective 24 Hr Interval Summary Free Text/Dictation Camacho presents today for his first postoperative evaluation on his left knee. He is 10 days status post left total knee arthroplasty. He is doing excellent overall. He denies significant pain, and it is well controlled with [place]. He is taking aspirin twice daily for DVT prophylaxis. He denies any fevers or chills. He is doing physical therapy with home health and making adequate progress. Looks very well overall today. He presents today for his first postoperative evaluation. Exam/Review of Systems Exam On exam today, he is alert and oriented 4, and in no acute distress. He is ambulate with a cane. Exam of the left knee demonstrates the incision to be clean, dry, and intact. [place] are in place. Range of motion is 0-100. Varus and valgus forces are stable. There is no erythema, warmth, pus, or drainage noted. Compartments otherwise soft. Homans sign is negative. He is neurovascularly intact distally. IMAGING: X-rays of the left knee were obtained today and reviewed by me. They demonstrate a good anatomic alignment with no fractures or dislocations identified. DARRIN STERLING PA-C Jun 26, 2017 11:03
--- NOTE | 2017-06-26 13:55 | RADRPT ---
PROCEDURE: XR Left Knee. CLINICAL INDICATION: Left knee pain. Postop. TECHNIQUE: Two views. Frontal and lateral. COMPARISON: 06/15/2017. FINDINGS: There is no fracture or dislocation. Anterior skin varsha are once again noted. There is a joint effusion. The anterior surgical drain has been removed. There is a total left knee arthroplasty which appears satisfactory. There is no lytic or blastic lesion. There is no joint effusion. IMPRESSION: 1. Anterior skin varsha. 2. Joint effusion. 3. Otherwise unremarkable postoperative appearance of the left knee. RPTAT: QQ .Reynold Brantley MD, MD Date Time Electronically viewed and signed by .Reynold Brantley MD, on 06/26/2017 13:54 .R/
== END | disposition home or self-care (01) ==
LOC: HKI 10:08
PROVIDERS: ATTEND Orthopaedic Surgery
DX: Z47.1 Aftercare following joint replacement surgery (principal); Z96.652 Presence of left artificial knee joint